=== PATIENT | female | born 1980 | race African-American/Black ===

== ENCOUNTER 2020-06-09 20:15 | Emergency (ER) | payer OTHER ==
--- OUTSIDE RECORDS SUMMARY | 2020-06-09 20:36 | XMS REPORT | Continuity of Care Document ---
:1980 Author Organization [facility] t Address [address] [place] [address] Care Team Providers Name Role Phone ELAINE GRANDE Primary Care Physician Unavailable SYSTEM, NOT IN Attending Clinician Unavailable Elaine Grande MD Attending Clinician [phone] ELAINE GRANDE Attending Clinician Unavailable Annamarie KENDRICK Attending Clinician ANNAMARIE Attending Clinician Unavailable Khadijah REN Attending Clinician Unavailable Abdi REN, M Attending Clinician Unavailable Payers Payer Name Policy Type Policy Effective Date Expiration Date Sour ce Number MCCOLL [id number] 2019 MD [place] [employer] 00:00:00 HEALTHCARE [id number] 2019-P resentPPO Problems Condition Condition Condition Status Onset Resolution Last Treating Co mments Source Name Details Category Date Date Treatment Clinician Date 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 Social History Social Habit Start Date Stop Date Quantity Comments Source History [facility] MD [place] Alcohol Std Drinks History [facility] MD [place] Alcohol Binge Sex Assigned At MD Coleman on Tobacco use and 2020-03-30 2020-03-30 Never used MD Coleman on exposure 00:00:00 00:00:00 Alcohol intake 2020-03-30 2020-03-30 Lifetime MD [place] n 00:00:00 00:00:00 non-drinker (finding) History [facility] 2020-03-30 2020-03-30 1 MD [place] Alcohol Frequency 00:00:00 00:00:00 Smoking Status Start Date Stop Date Source Never smoker MD [place] Medications Ordered Filled Start Stop Current Ordering Indication Dosage Frequency Signature Comments Components Source Medication Medication Date Date Medication? Clinician (SIG) Name Name multivitami 2020-0 Yes Take by MD perry 7- mouth. Anderso (multivitam 18:13: n in) tablet 40 ascorbic 2020-0 Yes 1000mg Take 1,000 M D acid, 7-28 mg by Laurie vitamin C, 18:13: mouth n (VITAMIN C) 40 daily. 1000 mg tablet multivitami 2020-0 Yes Take by MD perry with 7-28 mouth. Anderso minerals 18:13: n (HAIR,SKIN 40 AND NAILS ORAL) MAGNESIUM 2020-0 Yes Take by ORAL 7-28 mouth. Anderso 18:13: n 40 Vital Signs Vital Name Observation Time Observation Value Comments Source HEIGHT 2020-03-28 13:07:59 164.5 cm WEIGHT 2020-03-28 13:07:59 62.3 kg HEIGHT 2020-03-28 13:07:59 164.5 cm WEIGHT 2020-03-28 13:07:59 62.3 kg Systolic blood pressure 2020-03-28 18:07:59 111 mm[Hg] MD [place] Diastolic blood pressure 2020-03-28 18:07:59 66 mm[Hg] MD [place] Heart rate 2020-03-28 18:07:59 66 /min MD Db argueta Body temperature 2020-03-28 18:07:59 36.89 Mary Lou MD Harinder aleman Respiratory rate 2020-03-28 18:07:59 18 /min MD Harinder aleman Body height 2020-03-28 18:07:59 164.5 cm MD Db argueta Body weight 2020-03-28 18:07:59 62.3 kg MD Db argueta BMI 2020-03-28 18:07:59 23.02 kg/m2 MD Db argueta Procedures Procedure Date / Time Performed Performing Clinician [facility] e US BREAST COMPLETE 2020-03-28 15:40:00 Chato Meyers MD on BILATERAL MAMMO DIGITAL DIAGNOSTIC 2020-03-28 14:39:02 Chato Meyers MD BILATERAL W DANIEL HC 2018-NCOV COVID-19 2020-03-25 23:07:00 Jose Angel Grande OSCisco US BREAST 2020-01-10 14:09:06 Jose Angel Grande MD Brian rschely Manzano OSI US BREAST 2020-01-10 14:08:51 Jose Angel Grande MD Brianrhonda Manzano OSI MAMMO BILATERAL 2020-01-10 14:08:39 Jose Angel Grande MD OSI MAMMO BILATERAL 2019-07-28 15:08:26 Jose Angel Grande MD Encounters Start End Encounter Admission Attending Care Care Encounter Source Date/Time Date/Time Type Type Clinicians Facility Department ID 2020-03-28 Outpatient SYSTEM, MDA MDA [id number] 08:52:06 PROVIDER Jared o n 2020-03-24 Outpatient SYSTEM, MDA MDA [id number] 16:42:03 PROVIDER Jared o n 2020-03-28 2020-03-28 Outpatient EL REFINETTI, MDA MDA [id number] 13:01:59 14:02:15 JOSE ANGEL Jared o n 2020-03-28 2020-03-28 Outpatient EL REFINETTI, MDA MDA [id number] 12:58:50 12:59:29 JOSE ANGEL Jared o n 2020-03-28 2020-03-28 Outpatient EL ANNAMARIE, MDA MDA [id number] 09:37:55 09:37:55 CHATO Jared o n 2020-03-28 2020-03-28 Outpatient EL REFINETTI, MDA MDA [id number] 09:05:26 09:05:26 JOSE ANGEL Jared o n 2020-03-28 2020-03-28 Outpatient EL REFINETTI, MDA MDA [id number] 09:05:25 09:05:25 JOSE ANGEL Jared o n 2020-03-28 2020-03-28 Outpatient EL REFINETTI, MDA MDA [id number] 09:05:25 09:05:25 JOSE ANGEL Jared o n 2020-03-28 2020-03-28 Outpatient EL REFINETTI, MDA MDA [id number] 09:05:24 09:05:24 JOSE ANGEL Jared o n 2020-03-28 2020-03-28 Outpatient EL REFINETTI, MDA MDA [id number] 09:05:23 09:05:23 JOSE ANGEL Jared o n 2020-03-28 2020-03-28 Outpatient EL REFINETTI, MDA MDA [id number] 09:05:22 09:05:22 JOSE ANGEL perry 2020-03-28 2020-03-28 Outpatient RUBÉN GRANDE MDA MDA [id number] 09:05:21 09:05:21 JOSE ANGEL perry 2020-03-28 2020-03-28 Outpatient RUBÉN MEYERS, ELIZABETH MDA [id number] MD 08:55:38 08:55:38 CHATO perry 2020-03-28 2020-03-28 Outpatient RUBÉN GRANDE, ELIZABETH MDA [id number] 08:55:02 08:55:10 JOSE ANGEL perry 2020-03-28 2020-03-28 Outpatient EL ELIZABETH MDA [id number] MD 00:00:00 00:00:00 Jared perry 2020-03-25 2020-03-25 Outpatient RUBÉN GRANDE MDA MDA [id number] 17:57:40 17:57:40 JOSE ANGEL perry 2020-02-29 2020-02-29 Outpatient ANNAMARIE, ELIZABETH MDA [id number] 00:00:00 00:00:00 CHATO perry 2020-02-27 2020-02-27 Outpatient RUBÉN GRANDE MDA MDA [id number] 11:17:22 11:17:22 JOSE ANGEL perry Results Test Description Test Time Test Comments Results Result [facility] e Comments US Breast 2020-03-28 There is no [facility] Complete - 16:01:21 sonographic evidence Bilateral of malignancy. Multiple bilateral cysts arebenign. The findings and recommendations were discussed with the patient. Routine follow-up mammogram in 1 year is recommended. BI-RADS Category 2:Benign Finding(s) Interface, Radiology Results In - 03/28/2020 11:01 AM CDTCLINICAL INDICATION:Patient is a 39 year old female and is seen for breast lump FILMS COMPAREDThe present examination has been compared to prior imaging studies performed ata outside location on 01/10/2020, and at [facility] on 03/28/2020. Images were obtained in multiple scanning planes. Real-time sonographic imaging of both breasts (including all 4 quadrants andretroareolar region) was performed. Real time sonographic imaging of bilateralaxilla was performed. There are multiple benign cysts in both breasts, corresponding to mammography.The palpable abnormality in the right breast corresponds to a benign cyst at12:00, 4 cm from the nipple, measuring 1.4 cm. The largest cyst in the rightbreast measures 1.9 cm and the left breast measures 2 cm. IMPRESSION:There is no sonographic evidence of malignancy. Multiple bilateral cysts arebenign. The findings and recommendations were discussed with the patient. Routine follow-up mammogram in 1 year is recommended. BI-RADS Category 2:Benign Finding(s) Mammography Digital Diagnostic Bilateral with Daniel 2020-03-02 8 15:48:52 Test Item Value Reference Range Interpretation Comme nts IMP (test code = IMP) Masses in the both breasts are indeterminate and require additional imagingevaluation. An ultrasound exam is recommended. BI-RADS Category 0:Incomplete: Needs Additional Imaging Evaluation PXN (test code = PXN) Interface, Radiology Results In - 03/28/2020 10:56 AM CDTCLINICAL INDICATION:Patient is a 39 year old female and is seen for breast lump MAMMO DIGITAL DIAGNOSTIC BILATERAL W TOMODigital Mammogram evaluated with Computer Aided Detection (CAD). COMPARISON:The present examination has been compared to prior imaging studies performed atan outside location on 05/25/2018, 07/28/2019 and 01/10/2020. FINDINGS:The breasts are heterogeneously dense, which may obscure small masses. There are multiple, scattered, similar-appearing, oval masses in both breasts.One of these masses appear to correspond to the palpable abnormality felt by thepatient, marked by a triangular marker. No other abnormality is seen in both breasts. IMPRESSION:Masses in the both breasts are indeterminate and require additional imagingevaluation. An ultrasound exam is recommended. BI-RADS Category 0:Incomplete: Needs Additional Imaging Evaluation Lab Interpretation (test code = Abnormal 41961-6) MD Jesus US [id number] 14:09:12For comparison only. No interpretation requested.MD Jesus [id number] 14:08:44For comparison only. No interpretation requested.MD Cisneros COVID-19 (JOJO-CoV-2) PCR [id number] 21:50:42 Test Item Value Reference Interpretation Comments Range COVID19 SARS New Patient Indication (test code = 31064) COVID19 SARS Result Not Detected Not Detected (test code = 37955-1) COVID19 SARS SARS-CoV-2 NOT Detected. Interpretation (test Reference Range: Not code = 75138) Detected Methodology: The Hicks RealTime SARS-CoV-2 assay is a qualitative real-time reverse machine sole leveler polymerase chain reaction (precision instrument maker-PCR) test to detect RNA from SARS-CoV-2 in nasal, nasopharyngeal and oropharyngeal swabs from patients with signs and symptoms of infection who are suspected of COVID-19 by their health care provider. The Hicks RealTime SARS-CoV-2 performed on the [employer] System is a dual target assay with primers and probes for the RdRp and N genes. Results must be interpreted within the context of all relevant clinical and laboratory findings, and epidemiological risk factors. Positive results are indicative of the presence of SARS-CoV-2 RNA; clinical correlation with patient history and other diagnostic information is necessary to determine patient infection status. Positive results do not rule out bacterial infection or co-infection with other viruses. Negative results do not preclude SARS-CoV-2 infection and should not be used as the sole basis for patient management decisions. The Hicks RealTime SARS-CoV-2 assay is for in vitro diagnostic use under FDA Emergency Use Authorization only. Testing is limited to laboratories certified under the Clinical Laboratory Improvement Amendments of 1988 (CLIA), 42U.S.C. 263a, to perform high complexity tests. The Test was performed by the CLIA-certified, high-complexity Molecular Diagnostics Laboratory (MDL) at [facility] under the Food and Drug Administration (FDA) s Emergency Use Authorization. Factsheet for patients: https://www.[facility].org/ AbbottFactSheetPatientsFact sheet for healthcare providers: https://www.[facility].org/ AbbottFactSheetHCP Test performed by:[facility] [id number] [place] [address] [facility]
[2020-06-09] MEDS ORDERED: KETOROLAC 30 MG/ML INJ ONE (20:44)
[2020-06-09] MEDS ORDERED: NA CHLORIDE 0.9% 1,000 ML ONE (20:44)
[2020-06-09] MEDS ORDERED: ONDANSETRON 4 MG/2 ML VIAL ONE (20:44)
[2020-06-09 21:12] LABS: Absolute Lymphocytes (CBC) 3.3 K/uL (0.7-4.9); Basophils % 1.5 % (0-1.3); Hematocrit 36.4 % (36.0-45.0); MPV 9.6 fL (7.6-11.3); RBC Red Blood Cell Count 5.09 M/uL (3.86-4.86)
--- NOTE | 2020-06-09 21:19 | RAD REPORT ---
EXAM DESCRIPTION: CT - Abdomen Pelvis W Contrast - 06/09/2020 9:03 pm CLINICAL HISTORY: ABD PAIN COMPARISON: Abdomen Exam Complete dated 05/17/2019 TECHNIQUE: Biphasic, helical CT imaging of the abdomen and pelvis was performed following 100 ml non -ionic IV contrast. No oral contrast. All CT scans are performed using dose optimization technique as appropriate and may include automated exposure control or mA/KV adjustment according to patient size. FINDINGS: No suspicious findings in the lung bases. Liver contains multiple benign-appearing cysts that have been previously detailed. Largest is 3.2 cm in the subcapsular dome. No suspicious liver parenchymal finding. Spleen and pancreas without suspici ous finding. Gallbladder is contracted. No biliary tree dilatation. Symmetric renal function is seen with no hydronephrosis or suspicious renal mass. No pyelonephritis o r acute parenchymal process. No bladder abnormalities. No adrenal abnormalities. No uterine abnormality seen. Left ovary contains a 2 centimeter involuting cyst. No right ovarian ivory picious finding. No dilated bowel loops or bowel wall thickening. Appendix is normal. No free air, free fluid or infla mmatory stranding. No hernia, mass or bulky lymphadenopathy. No acute bone finding. Bulging disc material is present at L4-5. No canal or foramen stenosis. IMPRESSION: Contrast enhanced CT abdomen and pelvis showing no emergent finding. A 2 centimeter involuting left ovarian cyst is seen. No cyst hemorrhage or rupture findings. L4-5 bulging disc material not resulting in canal or foramen stenosis.
[2020-06-09 21:20] LABS: Urine Blood NEGATIVE (NEG); Urine Glucose NEGATIVE (NEG); Urine Protein NEGATIVE (NEG); Urine Specific Gravity 1.015 (1.005-1.030)
[2020-06-09 21:29] LABS: Potassium 3.9 mmol/L (3.5-5.1)
--- NOTE | 2020-06-09 21:35 | EDPHYS ---
Physician Documentation [facility] Name: Audrey Samuels Age: 40 yrs Sex: Female : 1980 Arrival Date: 06/09/2020 Time: 20:17 Bed 3 Private MD: ED Physician Kb Shirley HPI: 06/09 21:36 This 40 yrs old Black Female presents to ER via Ambulatory with complaints of Back Pain.kb 21:36 The patient presents with pain that is acute, with no known mechanism of injury. The kb symptoms are located in the left low back. Onset: The symptoms/episode began/occurred 2 week(s) ago, and became worse today. The pain does not radiate. Associated signs and symptoms: Pertinent positives: nausea, Pertinent negatives: abdominal pain, chest pain, constipation, dysuria, fever, headache, hematuria, incontinence, numbness, tingling, urinary retention, vomiting, weakness. The problem was sustained without known cause. Modifying factors: The patient symptoms are alleviated by nothing, the patient symptoms are aggravated by nothing. Severity of symptoms: At their worst the symptoms were moderate, in the emergency department the symptoms are unchanged. The patient has not experienced similar symptoms in the past. The patient has been recently seen by a physician: with similar presenting complaints, urine was tested and negative, pt was supposed to follow up for another urine test next week.. Historical: - Allergies: 20:26 No Known Allergies; ll1 - PMHx: 20:26 Asthma; ll1 - PSHx: 20:26 ; ll1 - Immunization history:: Flu vaccine is not up to date. - Social history:: Smoking status: Patient denies any tobacco usage or history of. ROS: 21:36 Constitutional: Negative for fever, chills, and weight loss, Cardiovascular: Negative kb for chest pain, palpitations, and edema, Respiratory: Negative for shortness of breath, cough, wheezing, and pleuritic chest pain, Abdomen/GI: Negative for abdominal pain, nausea, vomiting, diarrhea, and constipation, : Negative for injury, bleeding, discharge, and swelling, MS/Extremity: Negative for injury and deformity, Skin: Negative for injury, rash, and discoloration, Neuro: Negative for headache, weakness, numbness, tingling, and seizure. 21:36 Back: Positive for pain at rest, of the left low back. Exam: 21:35 Constitutional: This is a well developed, well nourished patient who is awake, alert, kb and in no acute distress. Head/Face: Normocephalic, atraumatic. Chest/axilla: Normal chest wall appearance and motion. Nontender with no deformity. No lesions are appreciated. Cardiovascular: Regular rate and rhythm with a normal S1 and S2. No gallops, murmurs, or rubs. Normal PMI, no JVD. No pulse deficits. Respiratory: Lungs have equal breath sounds bilaterally, clear to auscultation and percussion. No rales, rhonchi or wheezes noted. No increased work of breathing, no retractions or nasal flaring. Back: No spinal tenderness. No costovertebral tenderness. Full range of motion. Skin: Warm, dry with normal turgor. Normal color with no rashes, no lesions, and no evidence of cellulitis. MS/ Extremity: Pulses equal, no cyanosis. Neurovascular intact. Full, normal range of motion. Neuro: Awake and alert, GCS 15, oriented to person, place, time, and situation. Cranial nerves II-XII grossly intact. Motor strength 5/5 in all extremities. Sensory grossly intact. Cerebellar exam normal. Normal gait. 21:35 Abdomen/GI: Inspection: abdomen appears normal, Bowel sounds: normal, in all quadrants, Palpation: moderate abdominal tenderness, in the left lower quadrant. Vital Signs: 20:24 BP 120 / 66; Pulse 70; Resp 16; Temp 98.2; Pulse Ox 100% ; Pain 6/10; ll1 21:00 BP 121 / 70; Pulse 74; Resp 16; Pulse Ox 100% on R/A; lp1 MDM: 20:20 Patient medically screened. kb 21:30 Data reviewed: vital signs, nurses notes. Data interpreted: Pulse oximetry: on room air kb is 100 %. Interpretation: normal. Counseling: I had a detailed discussion with the patient and/or guardian regarding: the historical points, exam findings, and any diagnostic results supporting the discharge/admit diagnosis, lab results, radiology results, the need for outpatient follow up, a family practitioner, to return to the emergency department if symptoms worsen or persist or if there are any questions or concerns that arise at home. 06/09 20:26 Order name: Basic Metabolic Panel; Complete Time: 21:30 kb 06/09 20:26 Order name: CBC with Diff; Complete Time: 21:22 kb 06/09 20:26 Order name: CT Abd/Pelvis - IV Contrast Only; Complete Time: 21:23 kb 06/09 21:12 Order name: Urine Dipstick--Ancillary (enter results); Complete Time: 21:22 mw2 06/09 21:12 Order name: Urine --Ancillary (enter results); Complete Time: 21:22 mw2 06/09 20:26 Order name: IV Saline Lock; Complete Time: 21:17 kb 06/09 20:26 Order name: Labs collected and sent; Complete Time: 21:17 kb 06/09 20:26 Order name: Urine Test (obtain specimen); Complete Time: 21:17 kb 06/09 20:26 Order name: Urine Dipstick-Ancillary (obtain specimen); Complete Time: 21:17 kb Administered Medications: 21:16 Drug: TORadol - Ketorolac 15 mg Route: IVP; Site: right antecubital; lp1 21:43 Follow up: Response: Marked relief of symptoms; Pain is decreased lp1 21:16 Drug: NS 0.9% 1000 ml Route: IV; Rate: 1000 ml; Site: right antecubital; lp1 21:43 Follow up: IV Status: IV converted to saline lock; IV Intake: 300ml lp1 21:16 Drug: Zofran (Ondansetron) 4 mg Route: IVP; Site: right antecubital; lp1 21:44 Follow up: Response: No adverse reaction lp1 Disposition: 06/10 02:05 Co-signature as Attending Physician, Kb Shirley MD. [email or web address] Disposition: 06/09/20 21:34 Discharged to Home. Impression: Low back pain, Unspecified ovarian cysts. - Condition is Stable. - Discharge Instructions: Ovarian Cyst, [id number], Back Pain, Adult, [id number]. - Prescriptions for Zofran 4 mg Oral Tablet - take 1 tablet by ORAL route every 6 hours As needed; 20 tablet. Cyclobenzaprine 10 mg Oral Tablet - take 1 tablet by ORAL route every 8 hours As needed; 30 tablet. Diclofenac Sodium 75 mg Oral Tablet, Delayed Release (E.C.) - take 1 tablet by ORAL route 2 times per day As needed; 30 tablet. - Medication Reconciliation Form, Thank You Letter, Antibiotic Education, Prescription Opioid Use form. - Follow up: Emergency Department; When: As needed; Reason: Worsening of condition. Follow up: Private Physician; When: 2 - 3 days; Reason: Recheck today's complaints, Continuance of care, Re-evaluation by your physician. Signatures: Dispatcher [employer] EDMI Kim Castañeda, REMA-C ORE CRUSHER-Louise Beavers RN RN lp1 Michael Chandler RN RN ll1 Kb Shirley MD MD [email or web address] Corrections: (The following items were deleted from the chart) 06/09 21:48 21:34 06/09/2020 21:34 Discharged to Home. Impression: Low back pain; Unspecified lp1 ovarian cysts. Condition is Stable. Forms are Medication Reconciliation Form, Thank You Letter, Antibiotic Education, Prescription Opioid Use. Follow up: Emergency Department; When: As needed; Reason: Worsening of condition. Follow up: Private Physician; When: 2 - 3 days; Reason: Recheck today's complaints, Continuance of care, Re-evaluation by your physician. kb
--- NOTE | 2020-06-09 21:35 | ER ---
Nurse's Notes [facility] Name: Audrey Samuels Age: 40 yrs Sex: Female : 1980 Arrival Date: 06/09/2020 Time: 20:17 Bed 3 Private MD: Diagnosis: Low back pain;Unspecified ovarian cysts Presentation: 06/09 20:24 Chief complaint: Patient states: Low back pain for 2 weeks, worse for the past [address] Mathis last week, no blood found in her urine. Denies fever. Denies N/V/D. Coronavirus screen: Client denies travel out of the [place] in the last 14 days. At this time, the client does not indicate any symptoms associated with coronavirus-19. Ebola Screen: Patient denies travel to an Ebola-affected area in the 21 days before illness onset. Initial Sepsis Screen: Does the patient meet any 2 criteria? No. Patient's initial sepsis screen is negative. Does the patient have a suspected source of infection? Yes: Other: low back pain. Risk Assessment: Do you want to hurt yourself or someone else? Patient reports no desire to harm self or others. Onset of symptoms was May 27, 2020. 20:24 Method Of Arrival: Ambulatory ll1 20:24 Acuity: JODIE 3 ll1 Historical: - Allergies: 20:26 No Known Allergies; ll1 - PMHx: 20:26 Asthma; ll1 - PSHx: 20:26 ; ll1 - Immunization history:: Flu vaccine is not up to date. - Social history:: Smoking status: Patient denies any tobacco usage or history of. Screenin:45 Abuse screen: Denies threats or abuse. Denies injuries from another. Nutritional lp1 screening: No deficits noted. Tuberculosis screening: No symptoms or risk factors identified. Fall Risk None identified. Assessment: 20:43 Reassessment: Patient ambulated to bathroom at this time. lp1 21:00 General: Appears in no apparent distress. Behavior is calm, cooperative, appropriate lp1 for age. Pain: Complains of pain in lumbar area. Neuro: Level of Consciousness is awake, alert, obeys commands, Oriented to person, place, time, situation, Moves all extremities. Full function Gait is steady. Cardiovascular: Patient's skin is warm and dry. Respiratory: Respiratory effort is even, unlabored. GI: Reports nausea. : No signs and/or symptoms were reported regarding the genitourinary system. EENT: No signs and/or symptoms were reported regarding the EENT system. Derm: Skin is pink, warm \T\ dry. Musculoskeletal: Circulation, motion, and sensation intact. 21:44 Reassessment: Patient is alert, oriented x 3, equal unlabored respirations, skin lp1 warm/dry/pink. Patient states pain relief at this time Patient states feeling better. Vital Signs: 20:24 BP 120 / 66; Pulse 70; Resp 16; Temp 98.2; Pulse Ox 100% ; Pain 6/10; ll1 21:00 BP 121 / 70; Pulse 74; Resp 16; Pulse Ox 100% on R/A; lp1 ED Course: 20:17 Patient arrived in ED. ag3 20:20 Kim Castañeda FNP-C [facility]. kb 20:20 Kb Shirley MD is Attending Physician. kb 20:25 Triage completed. ll1 20:26 Arm band placed on Patient placed in an exam room, on a stretcher. ll1 20:35 Louise Will, RN is Primary Nurse. lp1 20:45 Patient has correct armband on for positive identification. Placed in gown. lp1 21:03 CT Abd/Pelvis - IV Contrast Only In Process Unspecified. EDMS 21:44 No provider procedures requiring assistance completed. IV discontinued, No lp1 redness/swelling at site. Pressure dressing applied, 20g IV to R AC DC'd. Administered Medications: 21:16 Drug: TORadol - Ketorolac 15 mg Route: IVP; Site: right antecubital; lp1 21:43 Follow up: Response: Marked relief of symptoms; Pain is decreased lp1 21:16 Drug: NS 0.9% 1000 ml Route: IV; Rate: 1000 ml; Site: right antecubital; lp1 21:43 Follow up: IV Status: IV converted to saline lock; IV Intake: 300ml lp1 21:16 Drug: Zofran (Ondansetron) 4 mg Route: IVP; Site: right antecubital; lp1 21:44 Follow up: Response: No adverse reaction lp1 Intake: 21:43 IV: 300ml; Total: 300ml. lp1 Outcome: 21:34 Discharge ordered by MD. abebe 21:45 Discharged to home ambulatory, with family. lp1 21:45 Condition: good 21:45 Discharge instructions given to patient, Instructed on discharge instructions, follow up and referral plans. medication usage, Demonstrated understanding of instructions, follow-up care, medications, Prescriptions given X 3. 21:48 Patient left the ED. lp1 Signatures: Dispatcher [employer] EDMS Kim Castañeda, CREDIT ASSESSMENT ANALYST-C CREDIT ASSESSMENT ANALYST-Louise Beavers, RN RN lp1 Aniyah Laboy ag3 Michael Chandler, RN RN ll1
[2020-06-09 21:55] VITALS: BP 121/70; O2SAT 100
[2020-06-09 21:57] VITALS: TEMP 98.2
== END 2020-06-09 21:48 | disposition home or self-care (01) ==
LOC: ER 20:15
DX: N83.209 Unspecified ovarian cyst, unspecified side (principal)
CPT/HCPCS: 85025; 80048; 36415; 81025; 82565; 81003; 74177; 96375; 96374; 99283; Q9967; J7030; J2405

== ENCOUNTER 2023-06-06 18:44 | Emergency (ER) | payer BC ==
[2023-06-06 19:24] LABS: Absolute Lymphocytes (CBC) 2.2 K/uL (0.7-4.9); Hematocrit 35.3 % (36.0-45.0); Lymphocytes % 27.2 % (15.3-44.8); MCV 72.4 fL (80-100); MPV 8.1 fL (7.6-11.3); Platelets 265 thou/uL (152-406); RBC Red Blood Cell Count 4.88 M/uL (3.86-4.86)
--- NOTE | 2023-06-06 19:48 | RAD REPORT ---
EXAM DESCRIPTION: [place] Single View06/06/2023 7:42 pm CLINICAL HISTORY: Chest pain COMPARISON: March 2023 FINDINGS: The lungs appear clear of acute infiltrate. The heart is normal size IMPRESSION: No acute abnormalities displayed
[2023-06-06 20:09] LABS: ALT/SGPT 21 U/L (13-56); AST/SGOT 15 U/L (15-37); Albumin 3.6 g/dL (3.4-5.0); Alkaline Phosphatase 62 U/L (45-117); BUN Blood Urea Nitrogen 11 mg/dL (7-18); Bicarbonate 23 mEq/L (21-32); Bilirubin Total 0.2 mg/dL (0.2-1.0); Glomerular Filtration Rate 90 ml/min (=/>90); Glucose Level 125 mg/dL (74-106); Magnesium 2.4 mg/dL (1.6-2.4); Potassium 3.7 mEq/L (3.5-5.1); Protein, Total 7.4 g/dL (6.4-8.2); Sodium Level 136 mEq/L (136-145)
[2023-06-06 20:10] LABS: Bilirubin Direct < 0.1 mg/dL (0-0.2); Bilirubin Indirect, Calculated ND mg/dL (0.2-0.8)
--- NOTE | 2023-06-06 20:16 | EDPHYS ---
Physician Documentation [facility] Name: Audrey Samuels Age: 43 yrs Sex: Female : 1980 Arrival Date: 06/06/2023 Time: 18:44 Bed 2 Private MD: ED Physician Herson Mcguire HPI: 06/07 02:11 This 43 yrs old Black Female presents to ER via Ambulatory with complaints of Chest sb4 Pain, Arm Pain. 02:11 Patient states that she has been experiencing left-sided chest pain and left arm pain sb4 for 3 days now. She denies any associated signs and symptoms. She states that her Adderall was increased 3 days ago but has no other changes in medication. She denies any shortness of breath, diaphoresis, fever, nausea, vomiting. Historical: - Allergies: 06/06 19:05 No Known Allergies; jl7 - Home Meds: 19:05 Adderall XR Oral [Active]; jl7 - PMHx: 19:05 Asthma; ADD; jl7 - Immunization history:: Adult Immunizations up to date. - Social history:: Smoking status: Patient denies any tobacco usage or history of. ROS: 06/07 02:11 Constitutional: Negative for fever, chills, and weight loss, sb4 Cardiovascular: Positive for chest pain, All other systems are negative, Exam: 02:11 Constitutional: This is a well developed, well nourished patient who is awake, alert, sb4 and in no acute distress. Head/Face: Normocephalic, atraumatic. Eyes: Extra-ocular motions intact. Periorbital areas with no swelling, redness, or edema. ENT: Mucous membranes moist. Cardiovascular: Regular rate and rhythm with a normal S1 and S2. Respiratory: Lungs have equal breath sounds bilaterally, clear to auscultation and percussion. No rales, rhonchi or wheezes noted. No increased work of breathing, no retractions or nasal flaring. Abdomen/GI: Soft, non-tender, no distension. Skin: Warm, dry with normal turgor. Normal color with no rashes, no lesions, and no evidence of cellulitis. MS/ Extremity: Pulses equal, no cyanosis. Neurovascular intact. Full, normal range of motion. Neuro: Awake and alert, GCS 15, oriented to person, place, time, and situation. Motor strength 5/5 in all extremities. Sensory grossly intact. Vital Signs: 06/06 18:44 BP 123 / 69; Pulse 92; Resp 17; Temp 98.7; Pulse Ox 100% ; Weight 52.16 kg; Pain 4/10; jl7 19:17 BP 130 / 95; Pulse 92; Resp 18 S; Pulse Ox 100% on R/A; ha1 19:51 BP 134 / 72; Pulse 95; Resp 18; Pulse Ox 100% on R/A; jb4 18:44 Pain Scale: Adult jl7 MDM: 18:53 Patient medically screened. sb4 06/07 02:11 Differential diagnosis: PE, electrolyte abnormality, acute MO, angina, hyperthyroidism, sb4 anxiety, adverse drug reaction. Data reviewed: vital signs, nurses notes, lab test result(s), EKG, radiologic studies, I have discussed the patient's presentation/case with the attending Emergency Department Physician; and as a result, I will discharge patient. Consideration of Admission/Observation Escalation of care including admission/observation considered. Management of patient was discussed with the following: Hospitalist: Dr. Samuels, hospitalist, and patient's . Scoring Tools HEART Score: History: ECG: Age: Risk Factors: No Risk Factors Known (0), Troponin: Total Score = 0. Counseling: I had a detailed discussion with the patient and/or guardian regarding the historical points, exam findings, and any diagnostic results supporting the discharge/admit diagnosis, lab results, radiology results, to return to the emergency department if symptoms worsen or persist or if there are any questions or concerns that arise at home. 06/06 18:59 Order name: Basic Metabolic Panel; Complete Time: 20:10 sb4 06/06 18:59 Order name: CBC with Diff; Complete Time: 19:27 sb4 06/06 18:59 Order name: D-Dimer; Complete Time: 19:28 sb4 06/06 18:59 Order name: LFT's; Complete Time: 20:10 sb4 06/06 18:59 Order name: Magnesium; Complete Time: 20:10 sb4 06/06 18:59 Order name: Troponin HS; Complete Time: 20:10 sb4 06/06 18:59 Order name: TSH; Complete Time: 20:10 sb4 06/06 18:59 Order name: XRAY Chest (1 view); Complete Time: 19:48 sb4 06/06 18:59 Order name: EKG; Complete Time: 19:00 sb4 06/06 18:59 Order name: Cardiac monitoring; Complete Time: 19:07 sb4 06/06 18:59 Order name: EKG - Nurse/Tech; Complete Time: 19:07 sb4 06/06 18:59 Order name: IV Saline Lock; Complete Time: 19:13 sb4 06/06 18:59 Order name: Labs collected and sent; Complete Time: 19:13 sb4 06/06 18:59 Order name: O2 Per Protocol; Complete Time: 19:07 sb4 06/06 18:59 Order name: O2 Sat Monitoring; Complete Time: 19:07 sb4 EC:11 Rate is 90 beats/min. Rhythm is regular, Normal Sinus Rhythm. MS interval is normal at sb4 120 msec. QRS interval is normal at 76 msec. QT interval is normal at 360 msec. No Q waves. T waves are Normal. No ST changes noted. Clinical impression: No evidence of ischemia. Interpreted by me. Reviewed by me. Administered Medications: No medications were administered Disposition Summary: 06/06/23 20:15 Discharge Ordered Notes: Location: Home sb4 Problem: new sb4 Symptoms: have improved sb4 Condition: Stable sb4 Diagnosis - Chest pain, unspecified sb4 Followup: sb4 - With: Emergency Department - When: As needed - Reason: Trouble breathing, Worsening of condition Discharge Instructions: - Discharge Summary Sheet sb4 - Nonspecific Chest Pain, Adult, [id number] sb4 Forms: - Medication Reconciliation Form sb4 - Thank You Letter sb4 - Antibiotic Education sb4 - Prescription Opioid Use sb4 - Patient Portal Instructions sb4 - Leadership Thank You Letter sb4 Addendum: 06/08/2023 06:57 Co-signature as Attending Physician, Herson Mcguire MD I reviewed the patient's care r n provided by the Advanced Practice Provider and agree with the diagnosis and treatment plan. Signatures: Dispatcher [employer] Herson Pickett MD MD rn Leal, Jahala, RN RN Carley Montoya, PALaliC PALaliC sb4
--- NOTE | 2023-06-06 20:16 | ER ---
Nurse's Notes [facility] Name: Audrey Samuels Age: 43 yrs Sex: Female : 1980 Arrival Date: 06/06/2023 Time: 18:44 Bed 2 Private MD: Diagnosis: Chest pain, unspecified Presentation: 06/06 18:44 Chief complaint: Patient states: Intermittent CP, shortness of breath and left arm pain jl7 x 3 days. 18:44 Coronavirus screen: At this time, the client does not indicate any symptoms associated jl7 with coronavirus-19. Ebola Screen: No symptoms or risks identified at this time. Initial Sepsis Screen: Does the patient meet any 2 criteria? No. Patient's initial sepsis screen is negative. Does the patient have a suspected source of infection? No. Patient's initial sepsis screen is negative. Risk Assessment: Do you want to hurt yourself or someone else? Patient reports no desire to harm self or others. Onset of symptoms was June 03, 2023. 18:44 Method Of Arrival: Ambulatory jl7 18:44 Acuity: JODIE 2 jl7 Triage Assessment: 18:44 General: Appears in no apparent distress. uncomfortable, Behavior is calm, cooperative, jl7 appropriate for age. Pain: Complains of pain in anterior aspect of left upper chest Pain radiates to left arm Pain currently is 4 out of 10 on a pain scale. Cardiovascular: Patient's skin is warm and dry. Historical: - Allergies: 19:05 No Known Allergies; jl7 - Home Meds: 19:05 Adderall XR Oral [Active]; jl7 - PMHx: 19:05 Asthma; ADD; jl7 - Immunization history:: Adult Immunizations up to date. - Social history:: Smoking status: Patient denies any tobacco usage or history of. Screenin:00 [facility] ED Fall Risk Assessment (Adult) History of falling in the last 3 months, ha1 including since admission No falls in past 3 months (0 pts) Confusion or Disorientation No (0 pts) Intoxicated or Sedated No (0 pts) Impaired Gait No (0 pts) Mobility Assist Device Used No (0 pt) Altered Elimination No (0 pt) Score/Fall Risk Level 0 - 2 = Low Risk Oriented to surroundings, Maintained a safe environment, Educated pt \T\ family on fall prevention, incl call for assistance when getting out of bed, Hourly rounding (assess needs \T\ fall precautionary measures) done. 19:17 Abuse screen: Denies threats or abuse. Denies injuries from another. Nutritional ha1 screening: No deficits noted. Tuberculosis screening: No symptoms or risk factors identified. Assessment: 19:14 General: Appears comfortable, Behavior is calm, cooperative. Pain: Complains of pain in ha1 chest Pain does not radiate. Pain currently is 5 out of 10 on a pain scale. Quality of pain is described as pressure, Pain began 2-3 days ago. Is continuous. Pain: Pain radiates to left arm. Neuro: Level of Consciousness is awake, alert, obeys commands, Oriented to person, place, time, situation. Cardiovascular: Capillary refill < 3 seconds Patient's skin is warm and dry. Rhythm is sinus rhythm. Respiratory: Airway is patent Respiratory effort is even, unlabored, Respiratory pattern is regular, symmetrical. GI: No signs and/or symptoms were reported involving the gastrointestinal system. Abdomen is flat, non-distended. 19:51 Reassessment: Patient appears in no apparent distress at this time. Patient and/or jb4 family updated on plan of care and expected duration. Pain level reassessed. Patient is alert/active/playful, equal unlabored respirations, skin warm/dry/pink. 20:39 Reassessment: Patient and/or family updated on plan of care and expected duration. Pain ha1 level reassessed. Patient is alert, oriented x 3, equal unlabored respirations, skin warm/dry/pink. Vital Signs: 18:44 BP 123 / 69; Pulse 92; Resp 17; Temp 98.7; Pulse Ox 100% ; Weight 52.16 kg; Pain 4/10; jl7 19:17 BP 130 / 95; Pulse 92; Resp 18 S; Pulse Ox 100% on R/A; ha1 19:51 BP 134 / 72; Pulse 95; Resp 18; Pulse Ox 100% on R/A; jb4 18:44 Pain Scale: Adult jl7 ED Course: 18:44 Arm band placed on right wrist. Patient placed in an exam room, on a stretcher, on jl7 preassembler printed circuit board, on pulse oximetry. 18:45 Patient arrived in ED. rg4 18:45 EKG done, by ED staff, reviewed by Carley Floyd PA-C. jl7 18:48 [facility] Floyd [facility] sb4 18:48 Herson Mcguire MD is Attending Physician. sb4 19:00 Patient has correct armband on for positive identification. Placed in gown. Bed in low ha1 position. Call light in reach. Side rails up X 1. 19:05 Triage completed. jl7 19:05 Inserted saline lock: 22 gauge in right antecubital area, using aseptic technique. ha1 Blood collected. 19:13 Basic Metabolic Panel Sent. ha1 19:13 CBC with Diff Sent. ha1 19:13 D-Dimer Sent. ha1 19:13 LFT's Sent. ha1 19:13 Magnesium Sent. ha1 19:13 Troponin HS Sent. ha1 19:43 XRAY Chest (1 view) In Process Unspecified. EDMS 20:39 Marycruz Srinivasan, RN is Primary Nurse. ha1 20:40 Provided Education on: follow up with pcp. Client placed on continuous cardiac and ha1 pulse oximetry monitoring. NIBP monitoring applied. 20:40 No provider procedures requiring assistance completed. IV discontinued, intact, ha1 bleeding controlled, No redness/swelling at site. Pressure dressing applied. Patient maintains SpO2 saturation greater than 95% on room air. Administered Medications: No medications were administered Medication: 20:40 VIS not applicable for this client. ha1 Outcome: 20:15 Discharge ordered by . sb4 20:40 Discharged to home ambulatory, ha1 20:40 Condition: stable 20:40 Discharge instructions given to patient, Instructed on discharge instructions, follow up and referral plans. Demonstrated understanding of instructions, follow-up care, 20:42 Patient left the ED. ha1 Signatures: Dispatcher [employer] EDOR Maria C Hampton 4 Valdemar Potts RN RN jb4 Wiley Bunch RN RN jl7 Marycruz Srinivasan, MIKAL RN ha1 Carley Floyd PA-C PA-C sb4
[2023-06-06 22:10] VITALS: TEMP 98.7; O2SAT 100
[2023-06-06 22:12] VITALS: BP 134/72
--- NOTE | 2023-06-09 12:23 | EKG ---
Test Date: 2023-06-06 Test Time: 18:53:53 Senior Software Test Engineer: NEO MEASUREMENT RESULTS: Intervals: Rate: 90 MN: 120 QRSD: 76 QT: 360 QTc: 440 [place]: P: 77 MN: 120 QRS: 69 T: 69 INTERPRETIVE STATEMENTS: Normal sinus rhythm Right atrial enlargement Borderline ECG No previous ECG available for comparison Electronically Signed On 06-09-23 12:17:53 CDT by Elvis Ortega
== END 2023-06-06 20:42 | disposition home or self-care (01) ==
LOC: ER 18:44
DX: R07.89 Other chest pain (principal)
CPT/HCPCS: 36415; 71045; 80048; 80076; 83735; 84443; 84484; 85025; 85379; 93005; 99284